=== PATIENT | female | born 1980 | race Two or more races ===

== ENCOUNTER 2019-01-31 09:08 | Day surgery (SDC) | payer OTHER | END 2019-01-31 21:10 | disposition home or self-care (01) | LOC: CIR.AMB 09:08 → EDSTATUS 10:30 → SURG 10:30 → CIR.AMB 15:45 | DX: N93.8 Other specified abnormal uterine and vaginal bleeding (principal) ==

== ENCOUNTER 2019-10-29 11:30 | Inpatient (IN) | payer OTHER ==
[~2019-10-29] VITALS: Ht 154.9 cm; Wt 74.8 kg
[2019-11-05] MEDS ORDERED: OXYBUTYNIN CHLOR5 MG PO (08:03)
[2019-11-05] MEDS ORDERED: OXYC1TAB9 PO (08:03)
== END 2019-11-05 12:34 | disposition home or self-care (01) | DRG 742 ==
LOC: SURG 11:30 → O/R 11-02 11:06 → SURG 11-02 11:06
PROVIDERS: Surgery; ADMIT Obstetrics & Gynecology Obstetrics; ATTEND Obstetrics & Gynecology Obstetrics
PROC: 0UB70ZZ Excision of Bilateral Fallopian Tubes, Open Approach (ICD-10-PCS; 2019-11-02)
PROC: 0UT90ZZ Resection of Uterus, Open Approach (ICD-10-PCS; principal; 2019-11-02 09:30)
PROC: 0TQB0ZZ Repair Bladder, Open Approach (ICD-10-PCS; 2019-11-02 09:30)
DX: D25.1 Intramural leiomyoma of uterus (principal); N99.71 Accidental puncture and laceration of a genitourinary system organ or structure during a genitourinary system procedure; Y65.8 Other specified misadventures during surgical and medical care

== ENCOUNTER → 2019-11-19 | Outpatient (CLI) | payer OTHER ==
[~2019-11-19] MED LIST: OXYBUTYNIN CHLOR5 MG PO; OXYC1TAB9 PO
== END | disposition home or self-care (01) ==
LOC: RX STUDY 10:32
PROVIDERS: ATTEND Surgery
DX: S37.20XS Unspecified injury of bladder, sequela (principal)

== ENCOUNTER 2024-09-26 20:23 | Emergency (ER) | payer OTHER ==
[~2024-09-26] VITALS: Ht 154.9 cm; Wt 58.1 kg
[2024-09-26] MEDS ORDERED: COZAAR50 MG PO (21:28)
[2024-09-26] MEDS ORDERED: KETOROLAC TROMETHAMINE 60 MG VIAL IM STA (21:51)
== END 2024-09-26 22:11 | disposition home or self-care (01) ==
LOC: ER 20:48
DX: R30.0 Dysuria (principal)

== ENCOUNTER 2025-01-01 11:34 | Emergency (ER) | payer OTHER ==
[~2025-01-01] VITALS: Ht 154.9 cm; Wt 61.2 kg
[~2025-01-01 11:34] MED LIST changes: +COZAAR50 MG PO
[2025-01-01] MEDS ORDERED: ZESTRIL10 M1 PO (12:04)
[2025-01-01] MEDS ORDERED: TRAZODONE HCL150 MG PO (12:05)
[2025-01-01] MEDS ORDERED: LONITEN2.5 MG PO (12:05)
[2025-01-01] MEDS ORDERED: CLONAZEPAM0.5 MG PO (12:05)
[2025-01-01] MEDS ORDERED: METHYLPREDNISOLONE SOD SUCC 125 MG VIAL IV STA (12:21)
[2025-01-01] MEDS ORDERED: FAMOtidine 10 MG/ML (4ML VIAL) IV STA (12:21)
[2025-01-01] MEDS ORDERED: DIPHENHYDRAMINE HCL 50 MG/ML VIAL 1ML IV STA (12:21)
[2025-01-01] MEDS ORDERED: DIPHENHYDRAMINE HCL 50 MG/ML VIAL 1ML ONE (12:44)
[2025-01-01] MEDS ORDERED: METHYLPREDNISOLONE SOD SUCC 125 MG VIAL ONE (12:44)
[2025-01-01] MEDS ORDERED: FAMOTIDINE/PF 20 MG/2 ML VIAL ONE (12:47)
== END 2025-01-01 14:04 | disposition home or self-care (01) ==
LOC: ER 11:34
DX: T78.40XA Allergy, unspecified, initial encounter (principal); I10 Essential (primary) hypertension